=== PATIENT | male | born 1950 | race Caucasian/White ===

== ENCOUNTER 2020-12-29 06:39 | Inpatient (IN) | payer MEDICARE, OTHER ==
[~2020-12-29] VITALS: Ht 182.9 cm; Wt 114.4 kg
--- NOTE | 2020-12-29 06:48 | PHYS DOC ---
General Adult EDM: Chief Complaint: FATIGUE HPI: HPI: 70 yo obese M presents to the ed with c/o fatigue, weakness, bowel incontinence, cough, sore throat, subjective fever and diffuse abdominal pain stating "I was just so out of it, I feel so weak." Is not on any home oxygen. No history of asthma or COPD. Denies alcohol, tobacco and drug use. Has been vaccinated for covid. Reports found him in soiled pants. Denies any fall/head trauma. Reports he takes eye drops and lasix because "I retain water." Review of Systems: Review of Systems: Constitutional: Denies fall/trauma or chills Eyes: Denies change in visual acuity or eye discharge HENT: Denies nasal congestion or rhinorrhea Respiratory: Denies hemoptysis or increased work of breathing Cardiovascular: Denies chest pain or edema GI: Denies melena or hematochezia : Denies dysuria or hematuria Musculoskeletal: Denies back pain or joint pain Integument: Denies rash or diaphoresis Neurologic: Denies headache, or neck stiffness or focal sensory changes Endocrine: Denies polyuria or polydipsia Lymphatic: Denies swollen glands Psychiatric: Denies depression or anxiety Physical Exam: PE: Constitutional: slow mental processing but not confused, appears fatigued/worn out, afebrile HENT: Normocephalic, atraumatic, dry mucous membranes Eyes: EOMI, conjunctiva normal, no discharge. Neck: Normal range of motion, supple, Cardiovascular: S1/2 present, regular rhythm Lungs & Thorax: Speaking in full sentences w/labored speech and mild tachypnea, requires NC, bilateral equal chest rise, Abdomen: soft, diffuse non focal tenderness, no guarding, obese/distended Skin: Warm, dry, no erythema, no rash. [] Back: No tenderness, no CVA tenderness. [] Extremities: No tenderness, no cyanosis, no unilateral lower extremity edema Neurologic: Alert and oriented X 3, normal motor function, normal sensory function, no focal deficits noted. [] Psychologic: flat affect/apathetic mood EKG: EKG: Sinus rhythm 70 bpm, no axis deviation, normal intervals, PACs present, no ST elevation or ST depression, no active chest pain Radiology/Procedures: Radiology/Procedures: IMAGING REPORT Signed PATIENT: LILIAN AGUILAR ACCOUNT: [id number] : 1950 LOCATION: ER AGE: 70 SEX: M EXAM STATUS: REG ER ORD. PHYSICIAN: JOANNA APONTE DO REASON: fatigue PROCEDURE: PORTABLE CHEST 1V EXAM: Chest, single view. HISTORY: Fatigue. COMPARISON: None. FINDINGS: Frontal views of the chest are obtained. There is diffuse lower lobe predominant interstitial infiltrate. There is a small right pleural effusion with suspected right lower and middle lobe partial consolidation. There is a prominent cardiac silhouette. There is no pneumothorax. There is suspected fluid tracking within the left pleural fissure. IMPRESSION: 1. Small right pleural effusion with suspected right middle and lower lobe partial consolidation. 2. Diffuse interstitial infiltrate. 3. Prominent cardiac silhouette. Electronically signed by: Jasmin Saab MD (12/29/2020 8:34 AM) [id number] DICTATED AND SIGNED BY: JASMIN SAAB MD DATE: 12/29/20832 CC: WILLARD MENDEZ DO; JOANNA APONTE DO ~MTH0 0 IMAGING REPORT Signed PATIENT: LILIAN AGUILAR ACCOUNT: [id number] : 1950 LOCATION: ER AGE: 70 SEX: M EXAM STATUS: REG ER ORD. PHYSICIAN: JOANNA APONTE DO REASON: left sided abdominal pain PROCEDURE: CT ABD PELV W/ IV CONTRST ONLY Examination: CT of the abdomen pelvis with IV contrast HISTORY: History of left-sided abdominal pain COMPARISON: None available TECHNIQUE: Axial CT images of the abdomen pelvis were performed with IV contrast. Coronal and sagittal reformats are performed Exposure: One or more of the following individualized dose reduction techniques were utilized for this examination: 1. Automated exposure control 2. Adjus tment of the mA and/or kV according to patient size 3. Use of iterative reconstruction technique FINDINGS: Moderate consolidation changes with the air bronchograms right lower lobe of the lung. Mild left lung base atelectasis. No evidence of free air identified in the abdomen diffusely decreased attenuation noted in the liver likely hepatic steatosis. The spleen, adrenals grossly appears unremarkable. The gallbladder is mildly distended. The stomach is mildly distended. The visualized pancreas grossly appears unremarkable The small bowel is nondilated. Feces and gas noted in the colon. Urinary bladder is mildly distended Punctate 5 mm calculus right kidney. Faint fat stranding identified about the bilateral kidneys. The anterior aspect of the abdomen is not included on the images. Mild degenerative changes lumbar spine. IMPRESSION: 1. Moderate consolidation changes with air bronchograms identified in the right lower lobe of the lung likely pneumonia . Follow-up to resolution. 2. Punctate 5 mm calculus right kidney. Faint fat stranding identified about the bilateral kidneys, nonspecific could be due to medical renal disease or pyelonephritis. Correlate with lab values. 3. Hepatic steatosis. Electronically signed by: Shaheen Barbosa MD (12/29/2020 9:45 AM) [id number] DICTATED AND SIGNED BY: SHAHEEN BARBOSA MD DATE: 12/29/20924 CC: WILLARD MENDEZ DO; JOANNA APONTE DO ~MTH0 0 Heart Score: C/O Chest Pain: No Risk Factors: Risk Factors: DM, Current or recent (<one month) smoker, HTN, HLP, family history of CAD, obesity. Risk Scores: Score 0 - 3: 2.5% MACE over next 6 weeks - Discharge Home Score 4 - 6: 20.3% MACE over next 6 weeks - Admit for Clinical Observation Score 7 - 10: 72.7% MACE over next 6 weeks - Early Invasive Strategies Course & Med Decision Making: Course & Med Decision Making Pertinent Labs and Imaging studies reviewed. (See chart for details) COVID-19 CRITERIA: The patient was evaluated during the global COVID-19 pandemic, and that diagnosis was suspected/considered upon their initial presentation. Their evaluation, treatment and testing was consistent with current guidelines for patients who present with complaints or symptoms that may be related to COVID-19. Concern for right sided parapneumonic effusion requiring NC, covid test pending. Started on dexamethasone and abx. Will admit for further medical management and nasal cannula/oxygen supplementation. I have spoken with the patient and/or caregivers. I have explained the patient's condition, diagnosis and treatment plan based on the information available to me at this time. I have answered the patient's and/or caregivers questions and answered any concerns. The patient and/or caregivers have as good an understanding of the patient's diagnosis, condition and treatment plan as can be expected at this point. The patient has been stabilized within the capability of the emergency department. The patient will be transported for further care and management or will be moved to an observation or inpatient service. I have communicated with the staff or medical practitioner taking over this patient's care. Dragon Disclaimer: Dragon Disclaimer: This electronic medical record was generated, in whole or in part, using a voice recognition dictation system. Departure Departure: Impression: Primary Impression: Person under investigation for COVID-19 Additional Impressions: Acute respiratory failure with hypoxia CAP (community acquired pneumonia) Fatigue Disposition: ADMITTED INPATIENT Admitting Physician: Charissa Núñez Condition: GUARDED JOANNA APONTE DO Dec 29, 2020 06:48
[2020-12-29] MEDS ORDERED: IV NORMAL SALINE 1,000ML 1,000 ML IV SCH (07:00)
[2020-12-29] MEDS ORDERED: IOHEXOL 300 MG/ML 75 ML VIAL. IV ONE (07:30)
[2020-12-29 07:52] LABS: BGAS PH 7.39 (7.35-7.46)
--- NOTE | 2020-12-29 07:59 | EKG ---
[address] [address] Test Date: 2020-12-29 Test Time: 06:56:24 Pat Name: LILIAN AGUILAR Department: Room: Gender: M Cost Control Specialist: FRANKO : 1950 Requested By: JOANNA APONTE Order Number: [id number] Reading MD: Michael Paul Measurements Intervals [place] Rate: 79 P: 41 AL: 142 QRS: 54 QRSD: 84 T: 90 QT: 378 QTc: 434 Interpretive Statements SINUS RHYTHM ATRIAL PREMATURE COMPLEX(ES) INCOMPLETE RIGHT BUNDLE BRANCH BLOCK Electronically Signed On 12-30-2020 16:41:19 CDT by Michael Paul
[2020-12-29 08:21] LABS: BASO % 0 % (0-3); EOS % 0 % (0-3); HEMATOCRIT 38.8 % (39.0-53.0); HEMOGLOBIN 13.1 g/dL (13.0-17.5); LYMPH % 8 % (24-48); MEAN CORPUSCULAR HEMOGLOBIN 32 pg (25-35); MEAN CORPUSCULAR HGB CONC 34 g/dL (31-37); MEAN CORPUSCULAR VOLUME 95 fL (79-100); MONO # 1.3 x10^3/uL (0.0-1.1); MONO % 10 % (0-9); NEUT # 10.6 x10^3uL (1.8-7.7); NEUT % 82 % (31-73); PLATELET COUNT 133 x10^3/uL (140-400); RED BLOOD COUNT 4.09 x10^6/uL (4.30-5.70); RED CELL DISTRIBUTION WIDTH 13.4 % (11.5-14.5)
[2020-12-29 08:34] LABS: CALCIUM 8.4 mg/dL (8.5-10.1); GFR 73.7; POTASSIUM 3.7 mmol/L (3.5-5.1)
[2020-12-29 08:37] LABS: INFLUENZA A PATIENT NEGATIVE (NEGATIVE); INFLUENZA B PATIENT NEGATIVE (NEGATIVE)
--- NOTE | 2020-12-29 08:37 | RAD ---
EXAM: Chest, single view. HISTORY: Fatigue. COMPARISON: None. FINDINGS: Frontal views of the chest are obtained. There is diffuse lower lobe predominant interstiti al infiltrate. There is a small right pleural effusion with suspected right lower and middle lobe par tial consolidation. There is a prominent cardiac silhouette. There is no pneumothorax. There is suspe cted fluid tracking within the left pleural fissure. IMPRESSION: 1. Small right pleural effusion with suspected right middle and lower lobe partial consolidation. 2. Diffuse interstitial infiltrate. 3. Prominent cardiac silhouette. Electronically signed by: Jasmin Moulton MD (12/29/2020 8:34 AM) [id number]
[2020-12-29 08:47] LABS: ALBUMIN 3.6 g/dL (3.4-5.0); DIRECT BILIRUBIN 0.4 mg/dL (0.0-0.2); MAGNESIUM 1.8 mg/dL (1.8-2.4); TOTAL BILIRUBIN 1.4 mg/dL (0.2-1.0); TOTAL PROTEIN 6.3 g/dL (6.4-8.2)
--- NOTE | 2020-12-29 09:29 | RAD ---
EXAM: Head CT without contrast. HISTORY: Confusion. TECHNIQUE: Computed tomographic images of the head were obtained without contrast. *One or more of the following individualized dose reduction techniques were utilized for this examina tion: 1. Automated exposure control. 2. Adjustment of the mA and/or kV according to patient size. 3. Use of iterative reconstruction technique. COMPARISON: None. FINDINGS: There is no acute or subacute extra-axial or intraparenchymal hemorrhage. There is no mass effect or midline shift. There is no hydrocephalus. There are areas of decreased attenuation within the cerebral white matter, nonspecific and likely rel ated to chronic small vessel disease. There is cerebral volume loss. There is severe ethmoid and maxillary sinus and moderate right frontal sinus mucosal thickening. Ther e is obstruction of the ostiomeatal units. The orbits and mastoid air cells are unremarkable. There i s no suspicious calvarial lesion. IMPRESSION: 1. No acute intracranial finding. Note is made that MRI is more sensitive for acute infarction. 2. Bilateral cerebral white matter changes, likely due to chronic small vessel disease in a patient o f this age. 3. Cerebral volume loss. 4. Paranasal sinus disease. Electronically signed by: Jasmin Moulton MD (12/29/2020 9:27 AM) [id number]
[2020-12-29] MEDS ORDERED: DEXAMETHASONE SOD PHOS 10 MG/ML VIAL. IVP ONE (09:45)
--- NOTE | 2020-12-29 09:48 | RAD ---
Examination: CT of the abdomen pelvis with IV contrast HISTORY: History of left-sided abdominal pain COMPARISON: None available TECHNIQUE: Axial CT images of the abdomen pelvis were performed with IV contrast. Coronal and sagitta l reformats are performed Exposure: One or more of the following individualized dose reduction techniques were utilized for thi s examination: 1. Automated exposure control 2. Adjustment of the mA and/or kV according to patient size 3. Use of iterative reconstruction technique FINDINGS: Moderate consolidation changes with the air bronchograms right lower lobe of the lung. Mild left lung base atelectasis. No evidence of free air identified in the abdomen diffusely decreased attenuation noted in the liver likely hepatic steatosis. The spleen, adrenals grossly appears unremarkable. The g allbladder is mildly distended. The stomach is mildly distended. The visualized pancreas grossly appe ars unremarkable The small bowel is nondilated. Feces and gas noted in the colon. Urinary bladder is mildly distended Punctate 5 mm calculus right kidney. Faint fat stranding identified about the bilateral kidneys. The anterior aspect of the abdomen is not included on the images. Mild degenerative changes lumbar spine. IMPRESSION: 1. Moderate consolidation changes with air bronchograms identified in the right lower lobe of the l juarez likely pneumonia . Follow-up to resolution. 2. Punctate 5 mm calculus right kidney. Faint fat stranding identified about the bilateral kidneys, nonspecific could be due to medical renal disease or pyelonephritis. Correlate with lab values. 3. Hepatic steatosis. Electronically signed by: Shaheen Barbosa MD (12/29/2020 9:45 AM) [id number]
[2020-12-29] MEDS ORDERED: AZITHROMYCIN 500 MG in IV NORMAL SALINE 250ML 250 ML IV ONE (10:00)
[2020-12-29] MEDS ORDERED: IV NORMAL SALINE 50ML 50 ML ONE (11:15)
[2020-12-29] MEDS ORDERED: IV NORMAL SALINE 250ML 250 ML ONE (11:15)
[2020-12-29] MEDS ORDERED: cefTRIAXone SODIUM 1 GM VIAL ONE (11:16)
[2020-12-29] MEDS ORDERED: AZITHROMYCIN 500 MG VIAL. IV ONE (11:16)
[2020-12-29 11:22] LABS: AMPHETAMINE/METHAMPHETAMINE NEG (NEG); BARBITURATES NEG (NEG); BENZODIAZEPINES NEG (NEG); CANNABINOIDS NEG (NEG); COCAINE NEG (NEG); METHADONE NEG (NEG); OPIATES NEG (NEG); PHENCYCLIDINE NEG (NEG)
[2020-12-29 11:30] LABS: BACTERIA,URINE 0 /HPF (0-FEW); BILIRUBIN,URINE NEG (NEG); CLARITY,URINE CLEAR; COLOR,URINE YELLOW; GLUCOSE,URINE NEG (NEG); NITRITE,URINE NEG (NEG); RBC,URINE OCC /HPF (0-2); SQUAMOUS EPITHELIAL CELL,UR FEW /LPF; UROBILINOGEN,URINE 0.2 mg/dL (0.2 mg/dL); WBC,URINE OCC /HPF (0-4)
[2020-12-29] MEDS ORDERED: METF500T16 PO (13:14)
[2020-12-29] MEDS ORDERED: ATOR40TA PO (13:14)
[2020-12-29] MEDS ORDERED: FLUT9.9S NS (13:14)
[2020-12-29] MEDS ORDERED: FURO20TA3 PO (13:14)
[2020-12-29] MEDS ORDERED: MONT10TA80 PO (13:14)
[2020-12-29] MEDS ORDERED: LOSA100T14 PO (13:14)
[2020-12-29] MEDS ORDERED: PRED20TA PO (13:14)
[2020-12-29] MEDS ORDERED: FLUT1DIS3 IH (13:14)
[2020-12-29 15:38] VITALS: BP 130/67
--- NOTE | 2020-12-29 16:30 | NUR ---
The patient, LILIAN AGUILAR, 70 y/o, M admitted by MAXIMILIAN SALMERON MD, was given written information regarding hospital policies, unit procedures and contact persons. Valuables were checked and left with patient at bedside. Pt resting comfortably in bed.
[2020-12-29] MEDS ORDERED: CONTRAST GIVEN. MC PRN (17:30)
--- NOTE | 2020-12-29 18:48 | HP ---
ADMIT DATE: 12/29/2020 HISTORY OF PRESENT ILLNESS: The patient is a 70-year-old male patient who presented to the Emergency Room with a complaint of fatigue, weakness, bowel incontinence, cough, sore throat, subjective fever and diffuse abdominal pain, stating "I was just out of it, I feel so weak, not on any home oxygen." No history of asthma or COPD. Denied any alcohol, tobacco or drug use. Has been vaccinated with Moderna vaccine. Reports found him in soil pants, denied any fall and head trauma. He takes eyedrops and Lasix because he retains water. He was extensively investigated in the Emergency Room, has had lab work and imaging studies. His lab work showed his white cell count was slightly elevated at 13,000, mild thrombocytopenia. His blood gases showed that he has pH of 7.39, pCO2 of 41, pO2 of 70, bicarbonate 25 and oxygen saturation of 95%. His chemistry was mostly unremarkable. Urinalysis was unrevealing and toxic screen was negative. His influenza A and B were negative and coronavirus still pending at the time of this dictation. His chest x-ray showed a small right pleural effusion with suspected right middle and lower lobe partial consolidation, effusions and interstitial infiltrate and prominent cardiac silhouette. CT scan of the abdomen and pelvis showed moderate consolidation changes with air bronchograms identified in the right lower lobe of the lung, likely pneumonia and punctate 5-mm calculus right kidney, same fat stranding identified about the bilateral kidneys, nonspecific and could be due to medical renal disease or viral nephritis, hepatic steatosis. CT scan of the head showed no acute intracranial finding and bilateral cerebral white matter changes likely due to chronic small vessel disease in a patient of this age, cerebral volume loss and paranasal sinus disease. PAST MEDICAL HISTORY: Significant for type 2 diabetes mellitus, hypertension, hyperlipidemia, chronic obstructive pulmonary disease, obstructive sleep apnea on CPAP. PAST SURGICAL HISTORY: Unremarkable. ALLERGIES: He has no known drug allergies. MEDICATIONS: He is currently on atorvastatin calcium 40 mg at bedtime, losartan potassium 100 mg once a day, furosemide 20 mg once a day, Advair Diskus 250/50 one puff twice a day, montelukast for Singulair 10 mg once a day, fluticasone propionate for Flonase 2 sprays to each nostril once a day, prednisone 20 mg daily and metformin 500 mg twice a day. FAMILY HISTORY: Noncontributory. SOCIAL HISTORY: He is , has 4 children. Never smoked, does not drink alcohol or use any recreational drugs. He is retired from [employer]. PHYSICAL EXAMINATION: GENERAL: On arrival to the Emergency Room, the patient looked well and was clearly in no apparent respiratory distress. There was no pallor, jaundice, cyanosis or thyromegaly. No jugular venous distention. No lower limb edema. VITAL SIGNS: Her heart rate was 89, blood pressure was 145/68, temperature 98.4, respiratory rate was 18 and oxygen saturation was 89%. HEAD, EYES, EARS, NOSE, AND THROAT: Normocephalic, atraumatic. NECK: Supple. HEART: Showed normal first and second heart sounds, no gallop, rub or murmur. CHEST: Shows central trachea, reduced air entry, equally reduced expansion with diffuse bilateral scattered rhonchi as crepitation mostly on the right side posteriorly. ABDOMEN: Markedly distended, soft, nontender. NEUROLOGIC: He was grossly intact. LABORATORY DATA: His lab work showed a white cell count of 13,000, hemoglobin 13, hematocrit 38, MCV 95 and platelet count of 133,000 with normal manual differential. His chemistry showed a serum sodium 140, potassium 3.7, chloride 106, bicarbonate 25, anion gap of 9, BUN 13, creatinine 1, estimated GFR was 74 mL per minute. His glucose 165, calcium was 8.4, magnesium was 1.8. Lactic acid was 1.3. Total bilirubin, AST, ALT, alkaline phosphatase were normal. His beta natriuretic peptide was 278. Total protein 6.3, albumin 3.6. His arterial blood gases showed a pH of 7.39, pCO2 of 41, pO2 of 70, bicarbonate 25 and oxygen saturation was 95% on FiO2 of 28%. Urinalysis was unremarkable. Toxic screen was negative. His influenza A and B were negative. His COVID-19 by PCR is still pending at the time of this dictation. ASSESSMENT: 1. The patient was admitted with acute hypoxic respiratory failure. 2. Chronic obstructive pulmonary disease exacerbation. 3. Community-acquired pneumonia. 4. Questionable COVID-19 pneumonia. Other medical problems include type 2 diabetes mellitus, hypertension, hyperlipidemia, obstructive sleep apnea on CPAP and COPD. PLAN: We will continue with IV antibiotic in the form of ceftriaxone and Zithromax. Continue with dexamethasone, start remdesivir as well as reconcile all his medication and Lovenox for DVT prophylaxis. JULITO DR: Cherelle TID: [id number]
[2020-12-29 19:00] VITALS: BP 134/71
[2020-12-29] MEDS: ATORVASTATIN CALCIUM 20 MG TABLET PO SCH (19:59)
[2020-12-29] MEDS: MONTELUKAST 10 MG TABLET. PO SCH (19:59)
[2020-12-29 23:00] VITALS: BP 138/72
[2020-12-30 06:04] VITALS: BP 112/67
[2020-12-30] MEDS: FUROSEMIDE 20 MG TABLET PO SCH (08:43)
[2020-12-30] MEDS: AZITHROMYCIN 250 MG TABLET. PO SCH (08:43)
[2020-12-30] MEDS: LOSARTAN 50 MG TABLET. PO SCH (08:43)
[2020-12-30] MEDS: FLUTICASONE 50MCG/NASAL SPRAY 16GM BOTTLE. NS SCH (08:44)
[2020-12-30] MEDS: DEXAMETHASONE SOD PHOS 10 MG/ML VIAL. IV SCH (08:44)
[2020-12-30] MEDS ORDERED: FLUTICASONE/VILANTEROL 200/25 INHALER. INH SCH (09:00)
[2020-12-30 11:24] VITALS: BP 108/58
[2020-12-30] MEDS: IPRATRPIUM/ALBUTEROL 0.5/2.5MG 3 ML NEBU. NEB SCH ×3 (12:00→19:27)
[2020-12-30] MEDS: ENOXAPARIN 40 MG/0.4 ML SYRINGE. SQ SCH (14:14)
[2020-12-30] MEDS ORDERED: SITA100T PO (14:59)
[2020-12-30] MEDS ORDERED: CALC500T31 PO (15:00)
[2020-12-30] MEDS ORDERED: CETI10TA16 PO (15:02)
[2020-12-30] MEDS ORDERED: AMLO-186 PO (15:02)
[2020-12-30 15:27] VITALS: BP 114/64
[2020-12-30] MEDS: BUDESONIDE 0.5 MG/2 ML NEBU NEB SCH (19:27)
--- NOTE | 2020-12-30 20:38 | PN ---
DATE: 12/30/2020 SUBJECTIVE: The patient is resting, slightly propped up in bed, in no apparent respiratory distress. He is definitely more awake, alert, continued to have cough. PHYSICAL EXAMINATION: GENERAL: When I examined him, he looked well with no pallor, jaundice, cyanosis or thyromegaly. No jugular venous distention. No limb edema. VITAL SIGNS: His heart rate was 85, blood pressure is 112/67, temperature was 97.5, respiratory rate was 16 and oxygen saturation was 96% on 2 liters of oxygen. HEAD, EYES, EARS, NOSE, AND THROAT: Normocephalic, atraumatic. NECK: Supple. HEART: Showed normal first and second heart sounds. No gallop, rub or murmur. CHEST: Chest shows central trachea, bilateral reduced expansion, reduced air entry, vesicular breath sounds with bilateral scattered rhonchi with crepitation mostly on the right side posteriorly. ABDOMEN: Distended, soft, nontender. NEUROLOGIC: He was definitely more awake, alert, responding appropriately. All cranial nerves intact. He moves extremities without difficulty. His intake and output were incompletely recorded. LABORATORY DATA: He has no lab work done this morning; however, his coronavirus by PCR is not detectable and his influenza A and B were negative. ASSESSMENT: 1. Acute hypoxic respiratory failure. 2. Chronic obstructive pulmonary disease exacerbation. 3. Community-acquired pneumonia. His coronavirus by PCR was negative. 4. The patient has multiple other medical problems including: A. Type 2 diabetes mellitus. B. Hypertension. C. Hyperlipidemia. D. Obstructive sleep apnea, on CPAP. PLAN: To continue with IV antibiotic in the form of ceftriaxone and Zithromax. Continue with dexamethasone. He did not need remdesivir and we will continue with Lovenox 40 mg subcutaneous once a day for DVT prophylaxis. I also started him on DuoNeb 0.5-2.5 mg 3 mL by nebulizer 4 times a day, Singulair 10 mg at bedtime, Pulmicort 0.5 mg by nebulizer twice a day. JILL DR: Cherelle TID: [id number]
[2020-12-30] MEDS: LACTOBACILLUS RHAMNOSUS GG 1 CAPSULE. PO SCH (21:00)
[2020-12-30] MEDS ORDERED: MONTELUKAST 10 MG TABLET. PO SCH (21:00)
[2020-12-30] MEDS: CALCIUM CARBONATE 500 MG TABLET PO SCH (21:01)
[2020-12-30] MEDS: CETIRIZINE HCL 10 MG TABLET PO SCH (21:01)
[2020-12-30] MEDS: MONTELUKAST 10 MG TABLET. PO SCH (21:01)
[2020-12-30] MEDS: ATORVASTATIN CALCIUM 20 MG TABLET PO SCH (21:01)
[2020-12-30 23:15] VITALS: BP 137/75
[2020-12-31] MEDS: IPRATRPIUM/ALBUTEROL 0.5/2.5MG 3 ML NEBU. NEB SCH ×4 (05:22→19:13)
[2020-12-31 05:40] VITALS: BP 122/70
[2020-12-31 06:08] LABS: BASO % 0 % (0-3); EOS % 0 % (0-3); HEMATOCRIT 36.3 % (39.0-53.0); HEMOGLOBIN 12.3 g/dL (13.0-17.5); LYMPH # 2.4 x10^3/uL (1.0-4.8); LYMPH % 23 % (24-48); MEAN CORPUSCULAR HEMOGLOBIN 33 pg (25-35); MEAN CORPUSCULAR HGB CONC 34 g/dL (31-37); MEAN CORPUSCULAR VOLUME 96 fL (79-100); MONO # 0.8 x10^3/uL (0.0-1.1); MONO % 7 % (0-9); NEUT # 7.2 x10^3uL (1.8-7.7); NEUT % 70 % (31-73); PLATELET COUNT 124 x10^3/uL (140-400); RED CELL DISTRIBUTION WIDTH 13.4 % (11.5-14.5); WHITE BLOOD COUNT 10.4 x10^3/uL (4.0-11.0)
[2020-12-31 06:25] LABS: ALBUMIN/GLOBULIN RATIO 1.1 (1.0-1.7); CALCIUM 8.6 mg/dL (8.5-10.1); GFR 73.7; POTASSIUM 3.8 mmol/L (3.5-5.1); TOTAL BILIRUBIN 0.4 mg/dL (0.2-1.0); TOTAL PROTEIN 5.8 g/dL (6.4-8.2)
[2020-12-31] MEDS: BUDESONIDE 0.5 MG/2 ML NEBU NEB SCH ×2 (08:00→19:13)
[2020-12-31] MEDS: CALCIUM CARBONATE 500 MG TABLET PO SCH ×2 (08:41→20:43)
[2020-12-31] MEDS: LACTOBACILLUS RHAMNOSUS GG 1 CAPSULE. PO SCH ×2 (08:41→20:43)
[2020-12-31] MEDS: amLODIPine BESYLATE 5 MG TABLET PO SCH (08:42)
[2020-12-31] MEDS: LOSARTAN 50 MG TABLET. PO SCH (08:42)
[2020-12-31] MEDS: FUROSEMIDE 20 MG TABLET PO SCH (08:42)
[2020-12-31] MEDS: LINAGLIPTIN 5 MG TABLET PO SCH (08:42)
[2020-12-31] MEDS: DEXAMETHASONE SOD PHOS 10 MG/ML VIAL. IV SCH (08:43)
[2020-12-31] MEDS: AZITHROMYCIN 250 MG TABLET. PO SCH (09:00)
[2020-12-31] MEDS: FLUTICASONE 50MCG/NASAL SPRAY 16GM BOTTLE. NS SCH (09:00)
[2020-12-31 11:25] VITALS: BP 136/77
--- NOTE | 2020-12-31 11:34 | PN ---
DATE: 12/31/2020 SUBJECTIVE: The patient is resting, slightly propped up in bed, in no apparent distress. On questioning him, he is feeling generally much better, he continued to have cough and chest tightness and wheezing, but much better than before. He is now maintaining his oxygen saturation at 97% on 2 liters of oxygen. He does have obstructive sleep apnea on CPAP, but is not on oxygen at home. PHYSICAL EXAMINATION: GENERAL: When I examined him, he looked well, slightly pale, not jaundiced or cyanosed, no thyromegaly. No jugular venous distention. No lower limb edema. VITAL SIGNS: His heart rate was 74, blood pressure is 122/70, temperature was 98.7, respiratory rate was 18 and oxygen saturation was 95%. HEAD, EYES, EARS, NOSE, AND THROAT: Normocephalic, atraumatic. NECK: Supple. HEART: Showed normal first and second heart sounds, no gallop, rub or murmur. CHEST: Shows central trachea, equally reduced expansion, reduced air entry, vesicular breath sounds with bilateral scattered rhonchi and basal crepitation, mostly on the right side posteriorly. ABDOMEN: Distended, soft, nontender. NEUROLOGIC: He was grossly intact. His intake was 480, output was incompletely recorded. LABORATORY DATA: Showed a white cell count of 10,000, hemoglobin 12, hematocrit 36, MCV 96 and platelet count of 124,000. His chemistry showed a serum sodium 142, potassium 3.8, chloride 108, bicarbonate 27, anion gap of 7, BUN 18, creatinine 1, estimated GFR was 73 mL per minute. His glucose was 232, calcium was 8.6. Total bilirubin, AST, ALT elevated. Alkaline phosphatase is normal. Total protein 5.8, albumin 3. His blood cultures continued so far showed no growth after 2 days. ASSESSMENT: 1. Acute hypoxic respiratory failure, improving. 2. Chronic obstructive pulmonary disease exacerbation. 3. Community-acquired pneumonia, his coronavirus PCR was negative. 4. The patient has multiple medical problems including: A. Type 2 diabetes mellitus. B. Hypertension. C. Hyperlipidemia. D. Obstructive sleep apnea, on CPAP. PLAN: To continue with IV antibiotic. Continue with dexamethasone. As he is negative for coronavirus PCR, he does not qualify for remdesivir. Continue with DVT prophylaxis. Continue with bronchodilator and hopefully he will be discharged home tomorrow. AMM/NIS DR: Cherelle TID: [id number]
[2020-12-31] MEDS: ENOXAPARIN 40 MG/0.4 ML SYRINGE. SQ SCH (12:06)
--- NOTE | 2020-12-31 13:34 | NUR ---
Nursing note PT sitting in bed, reports no pain or discomfort, medications administered.
[2020-12-31 15:36] VITALS: BP 121/68
[2020-12-31] MEDS: metFORMIN 500 MG TABLET PO SCH (16:40)
[2020-12-31 20:00] VITALS: BP 154/73
[2020-12-31] MEDS: MONTELUKAST 10 MG TABLET. PO SCH (20:43)
[2020-12-31] MEDS: CETIRIZINE HCL 10 MG TABLET PO SCH (20:43)
[2020-12-31] MEDS: ATORVASTATIN CALCIUM 20 MG TABLET PO SCH (20:43)
--- NOTE | 2020-12-31 21:03 | NUR ---
PT pleasant, cooperative, sitting on bedside reading on iPad. PT independent in room currently, will call if assistance needed.
--- NOTE | 2020-12-31 23:10 | NUR ---
PT came out of his room to tell this RN he was upset he did not get his "triple medicine". Upon further review, he seems to be speaking about Breo Ellipta which was discontinued. PT states he took this medication last night. Explained to PT this was discontinued / with last dose in am. PT is very upset this was discontinued as it is expensive.
[2020-12-31 23:34] VITALS: BP 152/73
[2021-01-01] MEDS: IPRATRPIUM/ALBUTEROL 0.5/2.5MG 3 ML NEBU. NEB SCH ×2 (05:02→11:22)
[2021-01-01 05:56] VITALS: BP 131/64
[2021-01-01] MEDS: LACTOBACILLUS RHAMNOSUS GG 1 CAPSULE. PO SCH (08:24)
[2021-01-01] MEDS: CALCIUM CARBONATE 500 MG TABLET PO SCH (08:25)
[2021-01-01] MEDS: LINAGLIPTIN 5 MG TABLET PO SCH (08:25)
[2021-01-01] MEDS: amLODIPine BESYLATE 5 MG TABLET PO SCH (08:25)
[2021-01-01] MEDS: FUROSEMIDE 20 MG TABLET PO SCH (08:25)
[2021-01-01] MEDS: LOSARTAN 50 MG TABLET. PO SCH (08:25)
[2021-01-01] MEDS: FLUTICASONE 50MCG/NASAL SPRAY 16GM BOTTLE. NS SCH (08:26)
[2021-01-01] MEDS: metFORMIN 500 MG TABLET PO SCH (08:26)
[2021-01-01] MEDS: AZITHROMYCIN 250 MG TABLET. PO SCH (08:26)
[2021-01-01] MEDS: DEXAMETHASONE SOD PHOS 10 MG/ML VIAL. IV SCH (08:28)
[2021-01-01 11:10] VITALS: BP 141/69
[2021-01-01] MEDS: BUDESONIDE 0.5 MG/2 ML NEBU NEB SCH (11:22)
[2021-01-01] MEDS: ENOXAPARIN 40 MG/0.4 ML SYRINGE. SQ SCH (11:46)
[2021-01-01] MEDS ORDERED: IPRA3AMP29 NEB (13:20)
[2021-01-01] MEDS ORDERED: CEFD300C PO (13:20)
[2021-01-01] MEDS ORDERED: AZIT250T PO (13:20)
--- NOTE | 2021-01-01 14:26 | NUR ---
PT WHEELED TO THE FRONT DOOR WITH ALL OF HIS BELONGINGS. PT HAS DISCHARGE PAPERWORK AND HANDWRITTEN PRESCRIPTIONS. PT PICKED HIM UP.
--- NOTE | 2021-01-01 14:27 | DS ---
HOSPITAL COURSE: The patient is a 70-year-old male patient who was admitted with a complaint of increasing shortness of breath, fatigue, weakness, cough, sore throat, subjective fever and diffuse abdominal pain. He was extensively investigated in the Emergency Room with lab work and imaging studies. His lab work showed that he has elevated white cell count and mild thrombocytopenia. His blood gases showed that his oxygen saturation was normal. His chemistry was mostly unremarkable. His urinalysis was unremarkable as well as toxic screen and his influenza A and B were negative. His chest x-ray showed small right-sided pleural effusion with suspected right middle and lower lobe partial consolidation, effusion, interstitial infiltrate and prominent cardiac silhouette. CT scan of the abdomen and pelvis showed moderate consolidation change with air bronchogram identified in the right lower lobe of the lung, likely pneumonia. He was treated with IV antibiotic in the form of ceftriaxone and Zithromax as well as dexamethasone. His coronavirus by PCR was negative and therefore, he did not receive any remdesivir and his cough, chest tightness and wheezing gradually improved. His white cell count is down from 13,000 to 10,000. PHYSICAL EXAMINATION: GENERAL: When I examined him today, he was sitting comfortably in chair, in no apparent respiratory distress. There was no pallor, jaundice, cyanosis or thyromegaly. No jugular venous distention. No limb edema. VITAL SIGNS: His heart rate was 78, blood pressure was 141/69, temperature was 97.8, respiratory rate was 18 and his oxygen saturation was 96% on room air. HEAD, EYES, EARS, NOSE AND THROAT: Showed he is normocephalic, atraumatic. NECK: Supple. HEART: Showed normal first and second heart sounds. No gallop, rub or murmur. CHEST: Clear to auscultation. No crepitation or rhonchi. ABDOMEN: Distended, soft, nontender. NEUROLOGIC: He was grossly intact. His intake was 1700, no output was recorded. LABORATORY DATA: His lab work showed a white cell count of 10,000, hemoglobin 12, hematocrit 36, MCV 96 and platelet count of 124,000. His chemistry showed a serum sodium of 142, potassium 3.8, chloride 108, bicarbonate 27, anion gap of 7, BUN 18, creatinine 1, estimated GFR was 74 mL per minute. His glucose was 232, calcium was 8.6. Total bilirubin and alkaline phosphatase were normal. AST and ALT were slightly elevated. Total protein 5.8, albumin 3. Urinalysis essentially unremarkable. Toxic screen was negative and his coronavirus by PCR was negative. Influenza A and B were negative. DISCHARGE MEDICATIONS: The patient was discharged home to continue on Zithromax 250 mg once a day for 3 more days, cefdinir 300 mg twice a day for 7 days and nebulized albuterol and Atrovent 4 times a day. Should continue on amlodipine besylate 5 mg once a day, atorvastatin calcium 40 mg at bedtime, calcium carbonate 500 mg twice a day, cetirizine 10 mg daily, Flonase 2 sprays to each nostril once a day, Advair Diskus 250/50 one puff twice a day, furosemide 20 mg daily, losartan potassium 100 mg once a day, metformin 500 mg twice a day, montelukast sodium for Singulair 10 mg at bedtime, sitagliptin phosphate for Januvia 100 mg daily. FINAL DISCHARGE DIAGNOSES: 1. Acute hypoxic respiratory failure, resolved. 2. Community-acquired pneumonia, resolving. 3. Coronavirus by PCR was negative. 4. Chronic obstructive exacerbation, improving on steroid and bronchodilator. 5. The patient has multiple other medical problems including: A. Type 2 diabetes mellitus. B. Hypertension. C. Hyperlipidemia. D. Obstructive sleep apnea, on CPAP. The patient will complete his antibiotic orally as well as tapering course of steroids. We made an appointment for him to be seen by the accounts receivable clerk, Dr. Menendez, on 02/19/2021 at 2:[address]: Cherelle TID: [id number]
== END 2021-01-01 14:27 | disposition home or self-care (01) | DRG 177 ==
LOC: ER 06:39 → 1 SOUTH 09:35
PROVIDERS: ADMIT Internal Medicine; ATTEND Internal Medicine
DX: J15.6 Pneumonia due to other Gram-negative bacteria (principal); J96.01 Acute respiratory failure with hypoxia; J44.0 Chronic obstructive pulmonary disease with (acute) lower respiratory infection; J44.1 Chronic obstructive pulmonary disease with (acute) exacerbation; J90 Pleural effusion, not elsewhere classified; D69.6 Thrombocytopenia, unspecified; E11.9 Type 2 diabetes mellitus without complications; E66.9 Obesity, unspecified; E78.5 Hyperlipidemia, unspecified; G47.33 Obstructive sleep apnea (adult) (pediatric); I10 Essential (primary) hypertension; K76.0 Fatty (change of) liver, not elsewhere classified; N20.0 Calculus of kidney; Z20.822 Contact with and (suspected) exposure to COVID-19; J15.9 Unspecified bacterial pneumonia
CPT/HCPCS: 36415; 36600; 70450; 71045; 74177; 80048; 80053; 80076; 80307; 81001; 82550; 82803; 82947; 83605; 83690; 83735; 83880; 84484; 85025; 87040; 87804; 93005; 94640; 94760; 96360; J0456; J0696; J1100; J1650; J7050; Q9967; U0003; 99285-25; J7030

== ENCOUNTER → 2021-03-04 | Outpatient (CLI) | payer MEDICARE, OTHER ==
[~2021-03-04] MED LIST: AMLO-186 PO; ATOR40TA PO; AZIT250T PO; CALC500T31 PO; CEFD300C PO; CETI10TA16 PO; FLUT1DIS3 IH; FLUT9.9S NS; FURO20TA3 PO; IPRA3AMP29 NEB; LOSA100T14 PO; METF500T16 PO; MONT10TA80 PO; PRED20TA PO; SITA100T PO
--- NOTE | 2021-03-04 17:34 | RAD ---
XR CHEST 2V History: Reason: hx of pneumonia x3 mths ago / Spl. Instructions: / History: Comparison: December 29, 2020 Findings: Mild linear bibasilar opacities. Decreased opacities compared to prior. Elevation left hemidiaphragm. No pleural effusion. No pneumothorax. Normal heart size. Impression: 1. Mild linear bibasilar opacities, likely atelectasis. Electronically signed by: Alejandro Zamudio DO (03/04/2021 5:31 PM) [id number]
== END ==
LOC: RAD 11:12
PROVIDERS: ATTEND Internal Medicine Critical Care Medicine
DX: J18.9 Pneumonia, unspecified organism (principal)
CPT/HCPCS: 71046